=== PATIENT | female | born 1995 | race American Indian/Alaskan Native ===

== ENCOUNTER 2017-01-30 12:12 | Emergency (ER) | payer SELFPAY ==
[2017-01-30 12:57] LABS: Bacteria,Urine 1+ /HPF (Negative); Bilirubin,Urine NEG (Negative); Blood,Urine NEG (Negative); Ketones,Urine NEG (Negative); Leukocyte Esterase,Urine LG (Negative); Mucus,Urine 2+ /HPF; Nitrite,Urine NEG (Negative); Protein,Urine <15 mg/dL mg/dL (Negative); Urobilinogen,Urine < 2.0 mg/dL (<2.0)
--- NOTE | 2017-01-30 16:33 | Emergency Department Report ---
ED Female HPI - General Chief complaint: Urogenital-Female Stated complaint: VAG DISCOMFORT/IRRITATION/SWELLING Time Seen by Provider: 01/30/17 15:03 Source: patient Mode of arrival: Ambulatory Limitations: No Limitations - History of Present Illness Initial comments: 21-year-old female past medical history none presents with complaint of vaginal discharge, mild dysuria. States symptoms of an ongoing for approximately one week. Denies any fevers chills or pelvic pain. Denies any nausea or vomiting. MD Complaint: vaginal discharge Onset/Timin -: week(s) Severity: mild Severity scale (0 -10): 4 Consistency: constant Are you Now?: No - Related Data Sexually active: No Home Medications Medication Instructions Recorded Confirmed Last Taken Caplet 1 tab PO DAILY 07/13/16 07/13/16 1 Day Ago Previous Rx's Medication Instructions Recorded Last Taken Type Fluconazole [Diflucan TAB] 150 mg PO ONCE #1 tablet 01/30/17 Unknown Rx Nitrofurantoin Hayes/M-Cryst 100 mg PO Q12HR #14 capsule 01/30/17 Unknown Rx [Macrobid CAP] Allergies Allergy/AdvReac Type Severity Reaction Status Date / Time No Known Allergies Allergy Verified 01/30/17 12:14 ED Review of Systems ROS: Stated complaint: VAG DISCOMFORT/IRRITATION/SWELLING Other details as noted in HPI Constitutional: denies: chills, fever Eyes: denies: eye pain, eye discharge, vision change ENT: denies: ear pain, throat pain Respiratory: denies: cough, shortness of breath, wheezing Cardiovascular: denies: chest pain, palpitations Endocrine: no symptoms reported Gastrointestinal: denies: abdominal pain, nausea, diarrhea Genitourinary: denies: urgency, dysuria, discharge Musculoskeletal: denies: back pain, joint swelling, arthralgia Skin: denies: rash, lesions Neurological: denies: headache, weakness, paresthesias Psychiatric: denies: anxiety, depression Hematological/Lymphatic: denies: easy bleeding, easy bruising ED Past Medical Hx - Past Medical History Previous Medical History?: No Hx Hypertension: No Hx Diabetes: No Hx Deep Vein Thrombosis: No Hx Renal Disease: No Hx Sickle Cell Disease: No Hx Seizures: No Hx Asthma: No Hx HIV: No - Social History Smoking Status: Never Smoker Substance Use Type: None - Medications Home Medications: Home Medications Medication Instructions Recorded Confirmed Last Taken Type Caplet 1 tab PO DAILY 07/13/16 07/13/16 1 Day Ago History Fluconazole [Diflucan TAB] 150 mg PO ONCE #1 tablet 01/30/17 Unknown Rx Nitrofurantoin Hayes/M-Cryst 100 mg PO Q12HR #14 capsule 01/30/17 Unknown Rx [Macrobid CAP] ED Physical Exam - General Limitations: No Limitations General appearance: alert, in no apparent distress - Head Head exam: Present: atraumatic, normocephalic - Eye Eye exam: Present: normal appearance, PERRL, EOMI - ENT ENT exam: Present: mucous membranes moist - Neck Neck exam: Present: normal inspection, full ROM - Respiratory Respiratory exam: Present: normal lung sounds bilaterally. Absent: respiratory distress - Cardiovascular Cardiovascular Exam: Present: regular rate, normal rhythm. Absent: systolic murmur, diastolic murmur, rubs, gallop - GI/Abdominal GI/Abdominal exam: Present: soft, normal bowel sounds - External exam: Present: normal external exam Speculum exam: Present: vaginal discharge - Extremities Exam Extremities exam: Present: normal inspection, full ROM - Back Exam Back exam: Present: normal inspection - Neurological Exam Neurological exam: Present: alert, oriented X3, CN II-XII intact, normal gait - Psychiatric Psychiatric exam: Present: normal affect, normal mood - Skin Skin exam: Present: warm, dry, intact, normal color. Absent: rash ED Course Vital Signs 01/30/17 12:15 Temperature 98.1 F O2 Sat by Pulse 100 Oximetry ED Medical Decision Making - Medical Decision Making A/P: Vulvovaginal candidiasis, UTI 1- Macrobid twice a day 7 days 2- fluconazole 150 mg 1 dose 3- follow-up with primary care and [facility] 4- treated empirically for possible GC, culture sent Critical care attestation.: If time is entered above; I have spent that time in minutes in the direct care of this critically ill patient, excluding procedure time. ED Disposition Clinical Impression: Vulvovaginal candidiasis UTI (urinary tract infection) Qualifiers: Urinary tract infection type: acute cystitis Hematuria presence: without hematuria Qualified Code(s): N30.00 - Acute cystitis without hematuria Disposition: DISCHARGED TO HOME OR SELFCARE Is pt being admited?: No Does the pt Need Aspirin: No Condition: Stable Instructions: Urinary Tract Infection in Women (ED), Vulvovaginal Candidiasis ( ED), Vaginitis (ED) Prescriptions: Fluconazole [Diflucan TAB] 150 mg PO ONCE #1 tablet Nitrofurantoin Hayes/M-Cryst [Macrobid CAP] 100 mg PO Q12HR #14 capsule Referrals: [facility] [Provider Group] - 3-5 Days LAURO CONTI MD [Staff Physician] - 3-5 Days Forms: Work/School Release Form(ED) Time of Disposition: 17:52
[2017-01-30] MEDS ORDERED: ZITHROMAX PO ONE (16:49)
[2017-01-30] MEDS ORDERED: ROCEPHIN IM ONE (16:49)
[2017-01-30] MEDS ORDERED: XYLOCAINE 1% MPF 5 mL INFILTRATI ONE (16:49)
== END 2017-01-30 18:03 | disposition home or self-care (01) ==
LOC: ED 12:12
DX: N30.00 Acute cystitis without hematuria (principal); B37.3 Candidiasis of vulva and vagina
CPT/HCPCS: 81001; 81025; 87210; 87591; 96372; 99283; J0696